=== PATIENT | male | born 1960 | race African-American/Black ===

== ENCOUNTER 2022-04-24 17:07 | Emergency (ER) | payer MEDICAID, OTHER ==
[~2022-04-24] VITALS: Ht 182.9 cm; Wt 136.0 kg
[2022-04-24 17:18] VITALS: BP 152/91
[2022-04-24] MEDS ORDERED: ASPIRIN 81MG TABLET PO ONE (20:45)
[2022-04-24] MEDS ORDERED: NITROGLYCERIN 0.4MG TABLET SL SL PRN (20:45)
[2022-04-24 21:30] LABS: BASOPHILS % 1.6 % (0.0-2.0); EOSINOPHILS % 3.1 % (0.0-5.0); HEMATOCRIT. 43.5 % (42.0-52.0); HEMOGLOBIN. 15.1 g/dL (14.0-18.0); MEAN CORPUSCULAR HEMOGLOBIN 31.9 pg (28.0-32.0); MONOCYTES % 7.8 % (2.0-8.0); NEUTROPHILS % 47.5 % (40.0-76.0); PLATELET 253 x1000/uL (130-400); RED BLOOD CELL COUNT 4.73 mill/uL (4.7-6.1); RED CELL DISTRIBUTION WIDTH 13.1 % (11.6-14.6)
[2022-04-24 21:36] LABS: CHLORIDE 105 mEq/L (98-107)
== END 2022-04-25 00:47 | disposition home or self-care (01) ==
LOC: ER 17:07
DX: R07.89 Other chest pain (principal); R06.02 Shortness of breath; Z87.891 Personal history of nicotine dependence
CPT/HCPCS: 36415; 71045; 80053; 83880; 84484; 85025; 85379; 93005; 99285; Z7610

== ENCOUNTER 2023-05-05 15:05 | Emergency (ER) | payer OTHER ==
[~2023-05-05] VITALS: Ht 182.9 cm; Wt 120.0 kg
[2023-05-05 15:22] VITALS: O2SAT 97
[2023-05-05] MEDS ORDERED: CLOT113C TP (16:57)
[2023-05-05] MEDS ORDERED: DOXY100T2 MT (16:57)
[2023-05-05] MEDS ORDERED: FLUCONAZOLE 100MG TABLET PO ONE (17:00)
[2023-05-05] MEDS ORDERED: FOLI-43 PO (17:23)
[2023-05-05] MEDS ORDERED: AMLO10TA80 PO (17:23)
[2023-05-05] MEDS ORDERED: ASPI-1406 PO (17:23)
[2023-05-05] MEDS ORDERED: METF-414 PO (17:23)
[2023-05-05] MEDS ORDERED: OMEP20CA14 PO (17:23)
[2023-05-05] MEDS: CEFTRIAXONE SODIUM 500MG VIAL IM ONE (17:36)
[2023-05-05] MEDS: FLUCONAZOLE 150MG TABLET PO NR (17:36)
[2023-05-05 17:43] VITALS: BP 141/78; PULSE 100; RESP 18; TEMP 98.2
[2023-05-05 18:47] LABS: BASOPHILS % 0.9 % (0.0-2.0); EOSINOPHILS % 2.6 % (0.0-5.0); HEMATOCRIT. 45.7 % (42.0-52.0); HEMOGLOBIN. 15.7 g/dL (14.0-18.0); LYMPHOCYTES % 36.7 % (20.0-50.0); MEAN CORPUSCULAR HEMOGLOBIN 31.9 pg (28.0-32.0); MEAN CORPUSCULAR HGB CONC 34.4 g/dL (31.0-37.0); MEAN CORPUSCULAR VOLUME 92.7 fL (80.0-94.0); MEAN PLATELET VOLUME 7.9 fl (7.4-10.4); MONOCYTES % 6.7 % (2.0-8.0); NEUTROPHILS % 53.1 % (40.0-76.0); PLATELET 247 x1000/uL (130-400); RED BLOOD CELL COUNT 4.93 mill/uL (4.7-6.1); RED CELL DISTRIBUTION WIDTH 12.8 % (11.6-14.6); WHITE BLOOD COUNT 5.5 x1000/uL (4.5-11.0)
[2023-05-05 19:00] LABS: CARBON DIOXIDE 27 mEq/L (21-32); CHLORIDE 97 mEq/L (98-107); CREATININE 1.2 mg/dL (0.6-1.3); SODIUM 130 mEq/L (136-145); UREA NITROGEN BLOOD 11 mg/dL (9-23)
[2023-05-05 19:11] LABS: GLUCOSE 406 mg/dL (70-105)
== END 2023-05-05 17:47 | disposition home or self-care (01) ==
LOC: ER 15:05
DX: R36.9 Urethral discharge, unspecified (principal); I10 Essential (primary) hypertension; Z20.2 Contact with and (suspected) exposure to infections with a predominantly sexual mode of transmission
CPT/HCPCS: 99283; 86592; 80048; 85025; 36415; 96372; J0696

== ENCOUNTER 2023-05-16 05:56 | Emergency (ER) | payer OTHER ==
[~2023-05-16] VITALS: Ht 182.9 cm; Wt 113.5 kg
[~2023-05-16 05:56] MED LIST: AMLO10TA80 PO; ASPI-1406 PO; CLOT113C TP; DOXY100T2 MT; FOLI-43 PO; METF-414 PO; OMEP20CA14 PO
[2023-05-16 06:01] VITALS: BP 165/90; PULSE 113; RESP 22; TEMP 97.4; O2SAT 93
[2023-05-16 06:32] LABS: CLARITY URINE CLEAR (CLEAR); COLOR URINE YELLOW (YELLOW); GLUCOSE URINE 3+ (NEGATIVE); KETONES URINE NEGATIVE (NEGATIVE); LEUKOCYTE ESTERASE URINE NEGATIVE (NEGATIVE); NITRITE URINE NEGATIVE (NEGATIVE); OCCULT BLOOD URINE NEGATIVE (NEGATIVE); PH URINE 5.5 (4.5-8.0); PROTEIN URINE NEGATIVE (NEGATIVE); SPECIFIC GRAVITY URINE 1.033 (1.005-1.030); UROBILINOGEN URINE 0.2 E.U./dL (0.2-1.0)
[2023-05-16 07:04] LABS: BACTERIA URINE NONE SEEN; RBC URINE NONE SEEN /hpf (0-2); SQUAMOUS EPITHELIAL CELL URINE RARE /lpf (RARE/1+); YEAST URINE NONE SEEN
[2023-05-16 08:54] LABS: *AMPHETAMINES SCREEN URINE NEGATIVE (NEGATIVE); *BARBITURATES SCREEN URINE NEGATIVE (NEGATIVE); *BENZODIAZEPINES SCREEN URINE NEGATIVE (NEGATIVE); *COCAINE SCREEN URINE NEGATIVE (NEGATIVE); CANNABINOID URINE SCREEN PRESUMPTIVE POSITIVE (NEGATIVE); ECSTASY MDMA SCREEN URINE NEGATIVE (NEGATIVE); METHADONE URINE SCREEN Neg (NEGATIVE); OPIATES URINE SCREEN NEGATIVE (NEGATIVE); PHENCYCLIDINE URINE SCREEN NEGATIVE (NEGATIVE)
== END 2023-05-16 10:48 | disposition left against medical advice (07) ==
LOC: ER 05:56
DX: R06.02 Shortness of breath (principal); Z53.21 Procedure and treatment not carried out due to patient leaving prior to being seen by health care provider
CPT/HCPCS: 80305; 81003; 99281